=== PATIENT | male | born 1940 | race Hispanic/Latino ===

== ENCOUNTER 2021-02-16 08:44 | Outpatient (CLI) | payer MEDICARE ==
--- NOTE | 2021-02-16 11:10 | Fluoroscopy Report ---
MODIFIED BARIUM SWALLOW INDICATION: R13.10 DYSPHAGIA TECHNIQUE: Swallowing was evaluated in the lateral position under direct fluoroscopy. FINDINGS: The patient was evaluated with thin liquids and puree consistencies.. There is no evidence for aspiration or penetration. There was however moderate residuals in the pirif orm sinuses and valleculae with both consistencies with poor clearance after additional swallows. Ple ase correlate with the formal report by speech therapy. IMPRESSION: Moderate piriform sinus and vallecular residual. No aspiration was witnessed. Fluoroscopic time: 2.3 minutes Number of fluoroscopic images: 2 Signer Name: Moody Augustine Jr, MD Signed: 02/16/2021 11:06 AM Workstation Name: [id number]
== END 2021-02-16 08:45 | disposition home or self-care (01) ==
LOC: PT 08:44
PROVIDERS: ATTEND Internal Medicine
DX: R13.10 Dysphagia, unspecified (principal); J01.80 Other acute sinusitis
CPT/HCPCS: 74230